=== PATIENT | female | born 1990 | race Caucasian/White ===

== ENCOUNTER 2017-07-02 07:53 | Inpatient (IN) | payer OTHER ==
[~2017-07-02] VITALS: Ht 165.1 cm; Wt 79.1 kg
[2017-07-02] VITALS (27 sets, daily range): BP systolic 102–144; BP diastolic 56–90
[2017-07-02] MEDS ORDERED: PRENATAL COMPL1 EACH PO (08:20)
[2017-07-02] MEDS ORDERED: VIT C-ROSE HIP500 MG PO (08:21)
[2017-07-02 09:24] LABS: EOSINOPHIL (%) 0.5 % (0-5); EOSINOPHIL COUNT 0.1 K/uL (0-0.3); HEMATOCRIT 36.8 % (36.0-46.0); IMMATURE GRANULOCYTE (%) 0.7 % (0.0-0.7); IMMATURE GRANULOCYTE COUNT 0.1 K/uL; LYMPHOCYTE COUNT 1.4 K/uL (1.0-2.8); MCH 33.8 PG (29.0-34.0); MCHC 36.7 G/DL (30.0-36.0); MCV 92.2 FL (83-99); MEAN PLAT.VOLUME 11.9 uM^3 (9.5-12.4); MONOCYTE (%) 5.3 % (3-12); MONOCYTE COUNT 0.8 K/uL (0-0.8); NEUTROPHIL (%) 83.2 % (45-76); PLATELET COUNT 223 K/uL (156-360); RBC DIS.WIDTH-CV 11.9 % (11.8-14.6); RBC DIS.WIDTH-SD 39.8 % (39-53); RED BLOOD COUNT 3.99 M/uL (3.80-5.20); WHITE BLOOD COUNT 14.5 K/uL (4.1-10.2)
[2017-07-02] MEDS ORDERED: MOTRIN800 MG PO (21:55)
[2017-07-03 00:11] VITALS: BP 127/77
[2017-07-03 05:40] LABS: BASOPHIL COUNT 0.1 K/uL (0-0.1); EOSINOPHIL (%) 0.3 % (0-5); EOSINOPHIL COUNT 0.1 K/uL (0-0.3); HEMATOCRIT 31.9 % (36.0-46.0); IMMATURE GRANULOCYTE (%) 0.7 % (0.0-0.7); IMMATURE GRANULOCYTE COUNT 0.2 K/uL; LYMPHOCYTE COUNT 1.7 K/uL (1.0-2.8); MCHC 36.1 G/DL (30.0-36.0); MCV 94.4 FL (83-99); MEAN PLAT.VOLUME 12.1 uM^3 (9.5-12.4); MONOCYTE (%) 5.9 % (3-12); MONOCYTE COUNT 1.3 K/uL (0-0.8); NEUTROPHIL (%) 85.2 % (45-76); PLATELET COUNT 218 K/uL (156-360); RBC DIS.WIDTH-CV 11.9 % (11.8-14.6); RBC DIS.WIDTH-SD 41.1 % (39-53); RED BLOOD COUNT 3.38 M/uL (3.80-5.20); WHITE BLOOD COUNT 22.3 K/uL (4.1-10.2)
[2017-07-03 07:00] VITALS: BP 123/64
[2017-07-03 14:29] VITALS: BP 114/75
[2017-07-03 19:55] VITALS: BP 141/87
[2017-07-04 07:46] VITALS: BP 132/82
[2017-07-04 14:19] LABS: BASOPHIL COUNT 0.1 K/uL (0-0.1); EOSINOPHIL (%) 1.2 % (0-5); EOSINOPHIL COUNT 0.2 K/uL (0-0.3); HEMATOCRIT 31.7 % (36.0-46.0); IMMATURE GRANULOCYTE (%) 1.1 % (0.0-0.7); IMMATURE GRANULOCYTE COUNT 0.2 K/uL; INSTRUMENT ABS NEUTROPHIL CT 11.4 K/uL; LYMPHOCYTE COUNT 1.8 K/uL (1.0-2.8); MCH 33.2 PG (29.0-34.0); MCV 94.9 FL (83-99); MEAN PLAT.VOLUME 11.6 uM^3 (9.5-12.4); MONOCYTE (%) 4.9 % (3-12); MONOCYTE COUNT 0.7 K/uL (0-0.8); NEUTROPHIL (%) 79.6 % (45-76); NEUTROPHIL COUNT 11.4 K/uL (1.8-6.4); PLATELET COUNT 233 K/uL (156-360); RBC DIS.WIDTH-CV 11.9 % (11.8-14.6); RBC DIS.WIDTH-SD 41.6 % (39-53); RED BLOOD COUNT 3.34 M/uL (3.80-5.20); WHITE BLOOD COUNT 14.4 K/uL (4.1-10.2)
[2017-07-04 14:43] VITALS: BP 139/77
== END 2017-07-04 17:50 | disposition home or self-care (01) | DRG 775 ==
LOC: LDRP-OP 07:53 → 2WEST 07:54 → LDRP-OP 07-27 11:07
PROVIDERS: Midwife
PROC: 00HU33Z Insertion of Infusion Device into Spinal Canal, Percutaneous Approach (ICD-10-PCS; principal; 2017-07-02)
PROC: 3E0S3CZ (ICD-10-PCS; principal; 2017-07-02)
PROC: 0HQ9XZZ Repair Perineum Skin, External Approach (ICD-10-PCS; principal; 2017-07-02)
PROC: 10E0XZZ Delivery of Products of Conception, External Approach (ICD-10-PCS; principal; 2017-07-02)
DX: O42.92 Full-term premature rupture of membranes, unspecified as to length of time between rupture and onset of labor (principal); O70.0 First degree perineal laceration during delivery; Z3A.40 40 weeks gestation of pregnancy; Z37.0 Single live birth
CPT/HCPCS: 85025; C1755; J0295; J0595; J3010; J7050; J7120